=== PATIENT | male | born 1970 | race Caucasian/White ===

== ENCOUNTER → 2019-07-12 | Outpatient (CLI) | payer SELFPAY | DX: M47.816 Spondylosis without myelopathy or radiculopathy, lumbar region (principal); M54.5 Low back pain; M25.511 Pain in right shoulder | CPT/HCPCS: 72100; 73030 ==

== ENCOUNTER 2019-08-05 10:19 | Outpatient (CLI) | payer OTHER, SELFPAY ==
--- NOTE | 2019-08-05 10:26 | XR_ITS ---
WS: [id number] LEFT KNEE: 4 VIEW(S) TECHNIQUE: AP, oblique(s) and lateral. HISTORY: KNEE PAIN COMPARISON: None available. Long intramedullary tibial vidhi. Plate and screw fixation with a healed fracture in the proximal tibia . No displacement of the distal locking screws. Fibula is intact. Mild narrowing of the lateral compartment. No joint effusion. No soft tissue abnormality. XR/XR knee LT 4V [id number] IMPRESSION: Extensive ORIF tibia with no acute fracture. Mild osteoarthritis lateral compartment.
--- NOTE | 2019-08-05 10:26 | XR_ITS ---
WS: [id number] RIGHT KNEE: 3 VIEW(S) TECHNIQUE: AP, oblique(s) and lateral. HISTORY: KNEE PAIN COMPARISON: None available. Extensive orthopedic hardware in the proximal tibia. No acute fracture line. Healed fracture proximal fibula with large osteophyte extending towards the tibia. Mild narrowing of the of the medial lateral compartments. No joint effusion. No soft tissue abnormality. XR/XR knee RT 4V [id number] IMPRESSION: 1. Status post ORIF proximal tibia. Healed fractures with no complications. 2. Healed fracture proximal fibula. 3. Mild medial and lateral compartment arthritis.
== END 2019-08-05 10:20 | disposition home or self-care (01) ==
LOC: RAD 10:22
PROVIDERS: PCP Family Medicine; Visit Provider Pediatrics Neonatal-Perinatal Medicine
DX: M17.12 Unilateral primary osteoarthritis, left knee (principal); M25.561 Pain in right knee; M25.562 Pain in left knee; M25.761 Osteophyte, right knee
CPT/HCPCS: 73564

== ENCOUNTER → 2019-08-30 13:29 | Outpatient (BNVA) | payer MEDICAID, SELFPAY | PROVIDERS: PCP Family Medicine; Visit Provider Social Worker Clinical | DX: F33.2 Major depressive disorder, recurrent severe without psychotic features (principal); F12.20 Cannabis dependence, uncomplicated | CPT/HCPCS: 90834 ==

== ENCOUNTER → 2019-10-04 13:36 | Outpatient (BNVA) | payer MEDICAID, SELFPAY | PROVIDERS: PCP Family Medicine; Visit Provider Social Worker Clinical | DX: F33.1 Major depressive disorder, recurrent, moderate (principal); F43.12 Post-traumatic stress disorder, chronic | CPT/HCPCS: 90834 ==

== ENCOUNTER → 2019-11-02 08:09 | Outpatient (BNVA) | payer MEDICAID, SELFPAY | PROVIDERS: PCP Family Medicine; Visit Provider Social Worker Clinical | DX: F33.1 Major depressive disorder, recurrent, moderate (principal); F43.12 Post-traumatic stress disorder, chronic | CPT/HCPCS: 90832 ==

== ENCOUNTER → 2019-11-24 08:29 | Outpatient (BNVA) | payer MEDICAID, SELFPAY | PROVIDERS: PCP Family Medicine; Visit Provider Social Worker Clinical | DX: F33.1 Major depressive disorder, recurrent, moderate (principal); F43.12 Post-traumatic stress disorder, chronic; F12.21 Cannabis dependence, in remission; F15.11 Other stimulant abuse, in remission | CPT/HCPCS: 90834 ==

== ENCOUNTER → 2019-12-23 08:09 | Outpatient (BNVA) | payer MEDICAID, SELFPAY | PROVIDERS: PCP Family Medicine; Visit Provider Social Worker Clinical | DX: F15.11 Other stimulant abuse, in remission (principal); F12.21 Cannabis dependence, in remission; F43.12 Post-traumatic stress disorder, chronic; F33.1 Major depressive disorder, recurrent, moderate | CPT/HCPCS: 90832 ==

== ENCOUNTER → 2020-01-03 07:32 | Outpatient (BNVA) | payer MEDICAID, SELFPAY | PROVIDERS: PCP Family Medicine; Visit Provider Psychiatry & Neurology Psychiatry | DX: F43.12 Post-traumatic stress disorder, chronic (principal); F33.1 Major depressive disorder, recurrent, moderate; F15.11 Other stimulant abuse, in remission; F12.21 Cannabis dependence, in remission | CPT/HCPCS: 99213 ==

== ENCOUNTER → 2020-01-25 08:52 | Outpatient (BNVA) | payer MEDICAID, SELFPAY | PROVIDERS: PCP Family Medicine; Visit Provider Social Worker Clinical | DX: F33.0 Major depressive disorder, recurrent, mild (principal); F12.20 Cannabis dependence, uncomplicated; F15.129 Other stimulant abuse with intoxication, unspecified | CPT/HCPCS: 90791 ==

== ENCOUNTER → 2020-02-28 09:21 | Outpatient (BNVA) | payer MEDICAID, SELFPAY | PROVIDERS: PCP Family Medicine; Visit Provider Social Worker Clinical | DX: F12.21 Cannabis dependence, in remission (principal); F43.12 Post-traumatic stress disorder, chronic; F33.1 Major depressive disorder, recurrent, moderate | CPT/HCPCS: 90834 ==

== ENCOUNTER → 2020-03-17 09:17 | Outpatient (BNVA) | payer MEDICAID, SELFPAY | PROVIDERS: PCP Family Medicine; Visit Provider Psychiatry & Neurology Psychiatry | DX: F33.1 Major depressive disorder, recurrent, moderate (principal); F15.11 Other stimulant abuse, in remission; F12.21 Cannabis dependence, in remission | CPT/HCPCS: 99213 ==

== ENCOUNTER → 2020-03-30 08:39 | Outpatient (BNVA) | payer MEDICAID, SELFPAY | PROVIDERS: PCP Family Medicine; Visit Provider Social Worker Clinical | DX: F43.12 Post-traumatic stress disorder, chronic (principal); F33.1 Major depressive disorder, recurrent, moderate | CPT/HCPCS: 90832 ==

== ENCOUNTER → 2020-05-01 08:39 | Outpatient (BNVA) | payer MEDICAID, SELFPAY | PROVIDERS: PCP Family Medicine; Visit Provider Social Worker Clinical | DX: F43.12 Post-traumatic stress disorder, chronic (principal); F33.1 Major depressive disorder, recurrent, moderate | CPT/HCPCS: 90832 ==

== ENCOUNTER → 2020-06-02 07:52 | Outpatient (BNVA) | payer MEDICAID, SELFPAY | PROVIDERS: PCP Family Medicine; Visit Provider Psychiatry & Neurology Psychiatry | DX: F33.1 Major depressive disorder, recurrent, moderate (principal); F15.11 Other stimulant abuse, in remission; F12.21 Cannabis dependence, in remission | CPT/HCPCS: 99213 ==

== ENCOUNTER → 2020-06-05 08:56 | Outpatient (BNVA) | payer MEDICAID, SELFPAY | PROVIDERS: PCP Family Medicine; Visit Provider Social Worker Clinical | DX: F33.1 Major depressive disorder, recurrent, moderate (principal); F43.12 Post-traumatic stress disorder, chronic; F12.21 Cannabis dependence, in remission | CPT/HCPCS: 90832 ==

== ENCOUNTER → 2020-08-25 09:15 | Outpatient (BNVA) | payer MEDICAID, SELFPAY | PROVIDERS: PCP Family Medicine; Visit Provider Psychiatry & Neurology Psychiatry | DX: F43.12 Post-traumatic stress disorder, chronic (principal); F33.1 Major depressive disorder, recurrent, moderate; F15.11 Other stimulant abuse, in remission; F12.21 Cannabis dependence, in remission | CPT/HCPCS: 99213 ==

== ENCOUNTER → 2021-02-22 07:11 | Outpatient (BNVA) | payer MEDICAID, SELFPAY | PROVIDERS: PCP Family Medicine; Visit Provider Psychiatry & Neurology Psychiatry | DX: F43.12 Post-traumatic stress disorder, chronic (principal); F33.1 Major depressive disorder, recurrent, moderate; F15.11 Other stimulant abuse, in remission; F12.21 Cannabis dependence, in remission | CPT/HCPCS: 99214 ==

== ENCOUNTER → 2021-07-26 08:39 | Outpatient (BNVA) | payer MEDICAID, SELFPAY | PROVIDERS: PCP Family Medicine; Visit Provider Psychiatry & Neurology Psychiatry | DX: F33.1 Major depressive disorder, recurrent, moderate (principal); F43.12 Post-traumatic stress disorder, chronic; F15.11 Other stimulant abuse, in remission; F12.21 Cannabis dependence, in remission | CPT/HCPCS: 99213 ==